=== PATIENT | female | born 1980 | race Caucasian/White ===

== ENCOUNTER 2016-07-14 11:17 | Emergency (ER) | payer BC ==
--- NOTE | 2016-07-14 11:22 | ER Document Report ---
ED Medical Screen (RME) - General Stated Complaint: VAGINAL BLEEDING Mode of Arrival: Ambulatory Information source: Patient Notes: Patient reports vaginal bleeding that started yesterday, bleeding started to get worse today. Patient does report passing clots. Patient does report feeling lightheaded and dizzy. Patient uncertain of LMP due to being irregular with endometriosis. I have greeted and performed a rapid initial assessment of this patient. A comprehensive ED assessment and evaluation of the patient, analysis of test results and completion of the medical decision making process will be conducted by additional ED providers. TRAVEL OUTSIDE OF THE [place] IN LAST 30 DAYS: No - Related Data Allergies/Adverse Reactions: morphine [Morphine] Allergy (Unknown, Verified 07/14/16 11:19) hydrocodone bitartrate [From Vicodin] Allergy (Verified 07/14/16 11:19) Past Medical History Psychiatric Medical History: Reports: Hx Attention Deficit Hyperactivity Disorder - Immunizations Immunizations up to date: Yes Hx Diphtheria, Pertussis, Tetanus Vaccination: No Physical Exam - Back Back: Tender - Lower lumbar area
[2016-07-14 11:26] VITALS: BP 125/83
== END 2016-07-14 11:45 | disposition left against medical advice (07) ==
LOC: ER 11:17
DX: N93.9 Abnormal uterine and vaginal bleeding, unspecified (principal); R42 Dizziness and giddiness; N80.9 Endometriosis, unspecified; Z88.5 Allergy status to narcotic agent; Z53.20 Procedure and treatment not carried out because of patient's decision for unspecified reasons
CPT/HCPCS: 99281